=== PATIENT | female | born 1935 | race Caucasian/White ===

== ENCOUNTER 2016-07-18 11:30 | Inpatient (IN) | payer MEDICARE, BC ==
[~2016-07-18] VITALS: Ht 160 cm; Wt 59.5 kg
--- NOTE | ~2016-07-18 | DS ---
PATIENT'S NAME: UMM NICHOLSON [facility] AGE: 80 Y [address] ROOM: [address] [place], [place] [address] LOCATION: [facility] ADMIT DATE: 07/18/2016 Discharge Summary DISCHARGE DATE: 07/29/2016 FAMILY PHYSICIAN: Physician, Unknown ATTENDING PHYSICIAN: Dali Fink REASON FOR ADMISSION: The patient is a 80-year-old female who was admitted with a type 2 odontoid fracture from a fall. The patient also had Alzheimer's type dementia and pulmonary hypertension. She was also a type 2 diabetic and on long time anticoagulation for mechanical heart valve. On examination, the patient was alert, but very confused and combative at times. She moved all her extremities. TREATMENT RENDERED: The patient's fracture was treated nonoperatively with a cervical collar. Imaging studies performed showed that the fracture was stable on serial imaging. It was therefore decided to try and manage the fracture nonoperatively. The patient was transferred to [facility] on 07/29/2016. She has since been seen in the clinic and repeat imaging shows that the fracture is stable in the position where it was at the time of dismissal. I will continue to follow the patient up in the clinic to make sure that the fracture is still stable. However, if the situation changes, she may need operative intervention. FINAL DIAGNOSES: 1. Cervical spine fracture. 2. Dementia. 3. Mechanical heart valve on anticoagulation. 4. Diabetes. MD AMA MCFARLANE/jose alejandro /[id number] d: 08/13/16 0457 t: 08/23/16 0903, DISCHARGE SUMMARY
--- NOTE | ~2016-07-18 | ECHO ---
Transthoracic Echocardiography Report (TTE) Demographics Patient Name UMM NICHOLSON Date of Study 07/19/2016 Patient Number [id number] Visit Number [id number] Date of 1935 Room Number G6219 Gender Female Number Age 80 year(s) Referring Reema Santos MD Chain Tender Barbie Salmeron, Physician RT,RVT,RDCS Physician Interpreting Mina Miguel MD Is Architect Physician Supervising Ordering MD/MLP Physician Nurse Stress School Transportation Director Conclusions Contractility Score Summary At rest the following contractility abnormalities were noted: Hypokinesis of the Mid anterior, the Mid tim-septal, the Mid infero-septal, the Basal tim-septal and the Basal anterior segments. Contractility of all other segments appeared normal. Summary TDS and off axis views. Moderate ANDREY without obstruction.Low normal EF of 50%.RWMAs cannot be confidently commented on.Normal LV internal dimensions. Mild biatrial dilatation. MAC. Normally functioning metallic prosthesis in aortic position Mildly dilated RV with mild hypokinesia. Mild TR with severe pulmonary hypertension with the pulmonary pressures in the low 70s. Increased RA pressures. Procedure Type of Study TTE procedure:2D Echocardiogram, M-Mode, Doppler , Color Doppler. Procedure Date Date: 07/19/2016 Start: 07:07 AM Study Location: Inpatient Portable Technical Quality: Adequate visualization Indications:Pre surgical clearance. Additional Indications:CAD Appropriate Use Criteria: 9 Patient Status: Routine HR: 109 bpm BP: 158/74 mmHg M-Mode/2D Measurements LV Diastolic Dimension: 4.6 cm LV Systolic Dimension: 3.15 cm LV Septum Diastolic: 1.65 cm LV Septum Systolic: 1.65 cm LV PW Diastolic: 1.17 cm LV PW Systolic: 1.53 cm Cardiac Output: 6.71 l/min AO Root Dimension: 3.3 cm LA Dimension: 4.7 cm EF Estimated: 55 % LA volume: 65 ml RV Base: 4.4 cm LVOT: 2 cm RV Length: 4.5 cm LVOT VTI: 19.6 cm TAPSE: 1.2 cm LV Stroke volume: 61.54 ml Doppler Measurements AV Peak Velocity: 2.51 m/s MV Peak E-Wave: 1.69 m/s AV Peak Gradient: 25.2 mmHg AV Mean Gradient: 13 mmHg MV P1/2t: 63 msec LVOT Peak Velocity: 0.91 m/s TR Velocity:3.07 m/s PV Peak Velocity: 1.36 m/s TR Gradient:37.7 mmHg PV Peak Gradient: 7.4 mmHg Estimated RAP:10 mmHg Estimated PASP: 47.7 mmHg Estimated RVSP: 48 mmHg E' Septal Velocity: 0.09 m/s MV E/E' Ratio: 17.9 Findings Left Ventricle Moderate assymetric septal left ventricular hypertrophy.Low normal or mildly reduced EF.Normal size and WMAs cannot be confidently commented on. Right Ventricle Mildly dilated right ventricle with mild hypokinesia. Left Atrium The left atrium is mildly dilated by LA volume index measurement. Right Atrium The right atrium is mildly dilated. Dilated IVC with poor inspiratory collapse consistent with elevated RA pressure. Severe pulmonary hypertension. Systolic pulmonary artery pressure is estimated to be 60 +/- 5 mmHg. Mitral Valve Mild mitral annular calcification. Aortic Valve The prosthetic aortic valve appears to function normally with no perivalvular leak. Tricuspid Valve There is severe pulmonary hypertension. The pulmonary pressure (RVSP) is 70 mmHg. Pulmonic Valve Normal pulmonic valve structure and function. Contractility Score LV regional wall motion:(0-Non visualized 1-Normal 2-Hypokinesis 3-Akinesis 4-Dyskinesis 5-Aneurysm) Signature dtt: Myriam Enriquez dtd: 07/19/16 0707 Physician Self Edit
--- NOTE | ~2016-07-18 | ENPV ---
Vascular Lower Extremities Arterial Duplex and Lower Arterial Plethysmography Procedure Demographics Patient Name UMM NICHOLSON Date of Study 07/20/2016 Patient Number [id number] Gender Female Date of 1935 Age 80 Visit Number [id number] Height 63 Weight 148 Number Referring Bianca Santos Interpreting Wendi Mathews MD Physician PATTERNMAKER Physician Physician Ordering Bianca Santos Supervisor Clam Bed Physician SAEED Supervisor Felling Bucking Juan Luis Sanderson [facility], RVT Conclusions Summary Duplex imaging of the right leg suggests mild calcific diffuse disease throughout the right lower extremity. There is an occlusion at the distal popliteal artery that reconstitutes with collateral flow at proximal PROCESS MACHINE OPERATOR. Ankle brachial index on the right is 1.49, noncompressible calcific disease. Ankle brachial index on the left is 1.65, noncompressible calcific disease. Procedure Type of Study: Extremities Arteries:Lower Extremities Arterial Duplex, Arterial Lower Extremity Right, Lower Arterial Plethysmography, Ankle/Brachial Indicies. Indications for Study:Non Healing Wounds. Additional Indications:Necrotic wound Appropriate Use Criteria:9 Patient Status:Routine. Study Location:Inpatient Portable. Technical Quality:Limited visualization due to combative patient. - Preliminary reported to:Dr. Fink. Velocities are measured in cm/s ; Diameters are measured in cm Pressures + ++--------+-----+----+--------+-----+ ! !!Right ! !Left! ! ! + ++--------+-----+----+--------+-----+ !Location !!Pressure!Ratio! !Pressure!Ratio! + ++--------+-----+----+--------+-----+ !Ankle PT !!224 !1.49 ! !247 !1.65 ! + ++--------+-----+----+--------+-----+ !DP !!204 !1.36 ! !244 !1.63 ! + ++--------+-----+----+--------+-----+ !Great Toe !!172 !1.15 ! ! ! ! + ++--------+-----+----+--------+-----+ - Brachial Pressure:Right: 121.Left:150. - YULIANA:Right: 1.49.Left: 1.65. Plethysmographic Digit Evaluation +---------++--------+-----+ ++--------+-----+ + ! !!Right ! !Left !! ! ! ! +---------++--------+-----+ ++--------+-----+ + !Location !!Pressure!Ratio!PPG Wave Form !!Pressure!Ratio!PPG Wave Form ! +---------++--------+-----+ ++--------+-----+ + !Great Toe!!172 !1.15 ! !! ! ! ! +---------++--------+-----+ ++--------+-----+ + Velocities are measured in cm/s ; Diameters are measured in cm LE Duplex Measurements + ++-----+ +----+---+ + ! !!Right! !Left! ! ! + ++-----+ +----+---+ + !Location !!PSV !Wave Desc. ! !PSV!Wave Desc. ! + ++-----+ +----+---+ + !Femoral !!136 !Triphasic ! ! ! ! + ++-----+ +----+---+ + !PFA !!100 !Triphasic ! ! ! ! + ++-----+ +----+---+ + !Prox SFA !!119 !Triphasic ! ! ! ! + ++-----+ +----+---+ + !Mid SFA !!98 !Triphasic ! ! ! ! + ++-----+ +----+---+ + !Dist SFA !!85 !Triphasic ! ! ! ! + ++-----+ +----+---+ + !Prox Popliteal !!98 !Triphasic ! ! ! ! + ++-----+ +----+---+ + !Dist Popliteal !!50 !Monophasic ! ! ! ! + ++-----+ +----+---+ + !Prox PROCESS MACHINE OPERATOR !!68 !Multiphasic! ! ! ! + ++-----+ +----+---+ + !Mid PROCESS MACHINE OPERATOR !!41 !Monophasic ! ! ! ! + ++-----+ +----+---+ + !Dist PROCESS MACHINE OPERATOR !!42 !Monophasic ! ! ! ! + ++-----+ +----+---+ + !DP !!38 !Monophasic ! ! ! ! + ++-----+ +----+---+ + Signature dtt: Brayan Vazquez dtd: 07/20/16 0912 Physician Self Edit
--- NOTE | ~2016-07-18 | CON ---
PATIENT'S NAME: ALENA NICHOLSON [facility] AGE: 83 Y [address] ROOM: [place] [address] LOCATION: [facility] ADMIT DATE: 07/18/2016 Consultation DISCHARGE DATE: FAMILY PHYSICIAN: PHYSICIAN, UNKNOWN ATTENDING PHYSICIAN: Dali Fink DATE OF CONSULTATION: 07/19/2016 REFERRING PHYSICIAN: ESTHELA LINARES MD The patient of Dr. Fink and Dr. Benavidez. Dear Colleagues: Thank you for asking me to see Mrs. Nicholson who is an 83-year-old female patient from [facility] where she has been there for 2 years according to her daughter. Her history is from her chart as well as from her daughter, Niki in [place]. Alena has had Alzheimer's for a number of years and for the last 2 years spent in dementia unit in [place]. She had a fall of unknown variety and has cervical spine fracture and is awaiting surgery on Friday. I am asked to see her to give cardiac clearance. The patient herself is very confused and has no history to give practically. The patient apparently is in the dementia unit and sleeps during most of the day and walks around during most of the night. Nobody has ever noticed her or have been told that she has chest pain or shortness of breath. She does not seem to have orthopnea or paroxysmal nocturnal dyspnea. She has a history of atrial fibrillation. She has not had any symptoms of lightheadedness, dizziness, and syncope. Her ankles have always been swollen. She has history of hypertension, type 2 diabetes, significant family history of premature coronary artery disease, elevated cholesterol, and she quit smoking 40 years ago. She has never had an [place]. She has had 3 different stents according to her daughter. 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 In 1974, she had a valve replaced which is her mitral valve. She also has history of congestive heart failure and paroxysmal atrial fibrillation. MEDICATIONS: Her current list of medications are, 1. Tylenol p.r.n. 2. Albuterol inhaler. PATIENT'S NAME: ALENA NICHOLSON [facility] AGE: 83 Y [address] ROOM: [place] [id number] LOCATION: [facility] ADMIT DATE: 07/18/2016 Consultation DISCHARGE DATE: FAMILY PHYSICIAN: PHYSICIAN, UNKNOWN ATTENDING PHYSICIAN: Dlai Fink 3. Allopurinol 150 mg a day. 4. Vitamin B12, 1 mg b.i.d. 5. Aricept 10 mg at bedtime. 6. Lexapro 5 mg every morning. 7. Ferrous sulfate 325 mg a day. 8. Folic acid 1 mg a day. 9. Isopto teardrops. 10. Insulin glargine 36 units subcutaneously every night at bedtime. 11. DuoNeb nebulizers every 8 hours. 12. Ativan t.i.d. 13. Milk of magnesia. 14. Namenda 14 mg every morning. 15. Toprol-XL 100 mg every morning in addition for heart rate more than 110 and 50 mg at bedtime. 16. Multivitamin once a day. 17. Saxagliptin 5 mg every morning. 18. Senna. 19. Simvastatin 20 mg at bedtime. 20. Coumadin. ALLERGIES: PENICILLIN, KEFLEX, AND VALIUM. PAST MEDICAL HISTORY: 1. History of CVA as mentioned earlier. 2. 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 3. Anxiety disorder. 4. Major depressive disorder. 5. History of gout. 6. Dementia. 7. Constipation. 8. Hypokalemia. 9. Vitamin B12 deficiency. SOCIAL HISTORY: The patient lives at the dementia unit. There is no abuse of tobacco or alcohol at this time. Her appetite and weight have been stable. FAMILY HISTORY: Mother had [place] at 65. PHYSICAL EXAMINATION: GENERAL: The patient does not appear to be in any acute distress. VITAL SIGNS: Blood pressure is 150/80, heart rate is in the 90s and PATIENT'S NAME: ALENA NICHOLSON [facility] AGE: 83 Y [address] ROOM: [address] [place] [id number] LOCATION: [facility] ADMIT DATE: 07/18/2016 Consultation DISCHARGE DATE: FAMILY PHYSICIAN: PHYSICIAN, UNKNOWN ATTENDING PHYSICIAN: Dali Fink irregular, respiration is 18, afebrile. She is not on oxygen. HEENT: Normal. NECK: Supple. I cannot examine the neck, otherwise because she has a neck brace on. HEART: First and second heart sounds are irregular. The first sound is variable in intensity and appears to be fairly crisp. CHEST: Appears to be clear. ABDOMEN: Soft. EXTREMITIES: Reveal no edema at this time. ASSESSMENT: 1. Severe dementia. 2. History of coronary artery disease status post percutaneous coronary interventions in the past and has had 3 stents apparently. 3. No history of myocardial infarction in the past. 4. Her EKG reveals atrial fibrillation as well as regular sinus in 2 different EKGs, which is otherwise unremarkable. 5. History of subacute bacterial endocarditis and valve replacement with what sounds like a metallic prosthesis. 6. Paroxysmal atrial fibrillation. 7. Systolic and diastolic congestive heart failure from the records. RECOMMENDATION: 1. In preparation for surgery, we will hold off the Coumadin and check the INR daily. When the INR drops less than 2.5, we will get her started on some heparin, which can be turned off about 4 hours prior to her internal surgery a little earlier. 2. Get an echo. 3. Get records from [place] as well as from the [place]. 4. Do a Lexiscan Cardiolite study at the earliest. The above plan was discussed with the patient's daughter, Niki and she does not seem to have any concerns about that plan. Again, I appreciate this opportunity to participate in the care of Mrs. Nicholson. MD HELEN MAYERS/jose alejandro /[id number] d: 07/19/16 1102 t: 07/30/16 1233, CONSULTATION REPORT
--- NOTE | ~2016-07-18 | ESTC ---
Cardiac Perfusion Imaging Demographics Patient Name LYN SALOMON Gender Female Patient Number [id number] Race Visit Number [id number] Ethnicity Corporate ID Room Number G6219 Accession Number [id number] Height 63 inches Date of 1935 Weight 148 pounds Interpreting Mina Miguel Date of study 07/22/2016 Physician Supervising /DEYVI ALANIZ Technologist Arleen Barrett MD Ordering Physician Mina Miguel Stress Juan Luis Sanderson MD trace evidence technician RDCS, RVT Stress ECG Reading Mina Miguel Nurse Elvira Armijo RN Physician MD Agatha Blair RN Procedure Procedure Type: Nuclear Stress Test:Pharmacological, Lexiscan, Cardiolite Stress Test Procedure Start time: 07/22/2016 09:56 Indications: CHF, Atrial fibrillation and History of CAD. Risk Factors The patient risk factors include:hypercholesterolemia, hypertension, dyslipidemia and prior heart failure . Conclusions Summary No TID. Small distal anteroseptal moderate fixed defect most consistent with soft tissue attenuation. Medium inferolateral moderate fixed defect most consistent with soft tissue attenuation Low normal EF and WM. No EKG changes of ischemia. Stress Protocols Resting ECG RSR. Pre-stress physical exam: Un changed. Peak HR:88 bpm HR/BP product:[id number] Peak BP:156/69 mmHg Predicted HR: 142 bpm % of predicted HR: 62 ECG Findings No ECG changes suggestive of ischemia. Arrhythmias No rhythm abnormality. Symptoms None. Stress Interpretation Asymptomatic with Lexiscan. Normal hemodynamic response. No ischemia. No arrythmia. Imaging Results Applied corrections - Motion correction applied High risk findings Summed scores - Summed stress score: 12 - Summed rest score: 13 - Summed difference score: -1 Stress ejection Ejection fraction:54 % EDV :105 ml ESV :48 ml Stroke volume :57 ml LV mass :122 gr LV size:Normal Normal LV function Imaging Protocols Rest Stress Isotope:Tc99m Sestamibi IV Isotope: Tc99m Sestamibi IV Isotope dose:11.3 mCi Isotope dose:33.9 mCi Date:07/22/2016 07:53 Date:07/22/2016 10:34 Technique: SPECT Technique: Gated Supine SPECT Supine Procedure Medications - Regadenoson (Lexiscan) 0.4 mg IV over 10-15 sec. I.V. 0.4 mg. Medical History Admission Data Admission date: 07/18/2016 Admission Time: 13:12 Hospital Status: Inpatient. Signatures dtt: Myriam Enriquez dtd: 07/22/16 0956 Physician Self Edit
--- NOTE | ~2016-07-18 | HP ---
PATIENT'S NAME: LYN [facility] AGE: 83 Y [address] ROOM: [place] [address] LOCATION: [facility] ADMIT DATE: 07/18/2016 History & Physical DISCHARGE DATE: FAMILY PHYSICIAN: PHYSICIAN, UNKNOWN ATTENDING PHYSICIAN: Dali Fink DATE OF SERVICE: 07/18/2016 The patient referred by Dr. Jameson. REASON FOR REFERRAL: Cervical spine fracture. PATIENT IDENTIFICATION: Alena Humphrey is an 83-year-old female. PRESENTING COMPLAINT: Fall. HISTORY OF PRESENT ILLNESS: The patient was unable to provide a full history and some of the history here is what was obtained from the records. The patient has had a number of falls and this morning she fell again landing on her face. This time, she complained of neck pain. The patient was taken to the hospital in [place] and a CT scan of her cervical spine revealed a cervical spine fracture. The patient was therefore referred to [place] for evaluation and treatment. PAST MEDICAL HISTORY: The patient has a history of dementia. She has also had atrial fibrillation and an artificial heart valve. The patient is diabetic. The patient also has a pacemaker. CURRENT MEDICATIONS: Several, please see chart. ALLERGIES: PLEASE SEE CHART. REVIEW OF SYSTEMS: Unable to obtain a full review of systems as the patient is not fully verbalizing. PHYSICAL EXAMINATION: GENERAL: The patient is an elderly female who was alert and cooperative PATIENT'S NAME: LYN [facility] AGE: 83 Y [address] ROOM: [place] [address] LOCATION: [facility] ADMIT DATE: 07/18/2016 History & Physical DISCHARGE DATE: FAMILY PHYSICIAN: PHYSICIAN, UNKNOWN ATTENDING PHYSICIAN: Dali Fink during the examination. VITAL SIGNS: Stable. NEUROLOGICAL: The patient is able to communicate, but she is not saying very much. Cranial Nerves: No cranial nerve deficits seen. Motor Examination: The patient is able to move all extremities with a reasonable amount of strength. She was able to get up to the commode with some help. HEENT: Head: The patient has bruises to her forehead area consistent with a history of falls that she has had. Eyes and Ears: No evidence of trauma. SKIN: No skin rashes, skin masses or bruises. EXTREMITIES: No cyanosis or clubbing. CARDIOVASCULAR: Heart sounds present. RESPIRATORY: The patient is not short of breath at bedside. REVIEW OF IMAGING STUDIES: The patient has had a cervical spine CT done. The CT scan shows a type 2 odontoid fracture with about 4 mm anterior subluxation. IMPRESSION: This is an 83-year-old female with type 2 odontoid fracture following a fall this morning. The patient also has dementia, diabetes, and atrial fibrillation. She is on Coumadin. PLAN: We will hold the patient's Coumadin for now as there is a chance that she may need surgery. The Hospitalist Service will be involved in the care of the patient to help with the medical issues. I presented treatment options to the patient's daughter including cervical collar versus operative fixation. The patient's daughter points out that the patient is not completely with it and has dementia and tends to pull things off including a cervical collar. It would therefore seem that surgery is more appropriate for the patient. The surgery would be type, anterior odontoid screw fixation. I will go over the benefits, risks, and alternatives of the procedure with the family. The patient is being admitted at this time. We will check and correct her INR if it needs to be corrected in anticipation of surgery. MD AMA MCFARLANE/asadl /[id number] D: 258 T: [id number] HISTORY & PHYSICAL
--- NOTE | ~2016-07-18 | CON ---
PATIENT'S NAME: [facility] AGE: 80 Y [address] ROOM: [place] [id number] LOCATION: [facility] ADMIT DATE: 07/18/2016 Consultation DISCHARGE DATE: FAMILY PHYSICIAN: PHYSICIAN, UNKNOWN ATTENDING PHYSICIAN: Dali Fink DATE OF CONSULTATION: 07/19/2016 REFERRING PHYSICIAN: Sarath Holt APRN. REASON FOR VISIT: Wound Care visit to evaluate and treat a right lower extremity ulcer. HISTORY OF PRESENT ILLNESS: This is a 80-year-old female patient who was admitted to [facility] after a fall. She is currently living at [facility]. She has a significant history of Alzheimer disease, essential hypertension, type 2 diabetes mellitus, CVA, anxiety, depression, gout, anemia, CAD, atrial fibrillation, and systolic and diastolic congestive heart failure. After her fall, she developed a C2 fracture. She presented to the hospital with a right lower extremity Unna boot. Unna boot was removed last night. TheraBond and Coban were applied to the site. The patient is demented and unable to provide a history. No previous records indicate how long she has had an Unna boot on. The patient is kicking during the interview and uncooperative. Unable to complete a review of system. No family at bedside. PAST MEDICAL HISTORY: Obtained from previous records: 1. Type 2 diabetes mellitus. 2. Anemia, secondary to vitamin B12 deficiency. 3. Hyperlipidemia. 4. Hypokalemia. 5. Constipation. 6. Dementia with behavioral disturbances. 7. Gout. 8. Major depressive disorder. 9. Anxiety. 10. History of rheumatic multiple valve disease. 11. Coronary artery disease. 12. Essential hypertension. 13. Paroxysmal atrial fibrillation. 14. Systolic and diastolic congestive heart failure. 15. CVA. PATIENT'S NAME: [facility] AGE: 80 Y [address] ROOM: [place] [address] LOCATION: [facility] ADMIT DATE: 07/18/2016 Consultation DISCHARGE DATE: FAMILY PHYSICIAN: PHYSICIAN, UNKNOWN ATTENDING PHYSICIAN: Dali Fink PAST SURGICAL HISTORY: Obtained from previous records: 1. Cholecystectomy. 2. Valve replacement. 3. Foot surgery. 4. Right rotator cuff. 5. Bilateral cataracts. FAMILY HISTORY: None listed on the chart. The patient unable to provide history. SOCIAL HISTORY: The patient lives in [place] on the dementia unit. She quit smoking in 1974 per previous records. ALLERGIES: CEPHALEXIN, DILTIAZEM, AND PENICILLIN. CURRENT MEDICATIONS: Please refer to the medication administration record. REVIEW OF SYSTEMS: Unable to complete due to the patient's cognitive status. PHYSICAL EXAMINATION: VITAL SIGNS: Temperature 96.5, pulse 97, respirations 18, blood pressure 158/74, pulse oximetry 93% on 3 L. Height 5 feet 3 inches and weight 67.5 kg. The patient was initially sleeping in bed. Appears as an elderly female. Does not arouse until touching her right lower extremity wound. Then she was kicking and withdrawing. HEENT: Unable to completely assess. Cervical collar in place. Would not open her mouth. CARDIOVASCULAR: Regular rate and rhythm noted on the monitor. ABDOMEN: Flat. EXTREMITIES: Doppled right pedal pulses. Posterior tibial pulse thready. Capillary refill intact. Extremity is warm to touch. No hair growth noted. The entire right lower extremity has bulging varicosities and telangiectasia. SKIN: Right anterior lower ulcer measures 4.0 cm width x 4.0 cm length x 0.5 cm depth. Wound bed has necrotic tissue about 65% yellow adherent slough, about 30% soft brown necrosis, and about 5% red granulation tissue. Periwound is erythemic. Moderate serous exudate noted. Linear brown scab intact to the proximal wound. Right posterior calf has two linear brown intact scabs, unable to measure as the patient is kicking and uncooperative. Buttocks intact. Elbows intact. PATIENT'S NAME: [facility]MM [facility]ICH[facility] AGE: 80 Y [address] ROOM: [place] [address] LOCATION: [facility] ADMIT DATE: 07/18/2016 Consultation DISCHARGE DATE: FAMILY PHYSICIAN: PHYSICIAN, UNKNOWN ATTENDING PHYSICIAN: Dali Fink LABORATORY DATA: Hemoglobin A1c 5.8%. White blood cell count 8.5, hemoglobin 9.2, hematocrit 29.7, platelets 174. Lactate 1.2. Sodium 140, potassium 4.6, chloride 106, bicarb 27, BUN 15, creatinine 0.9, glucose 116, and albumin 2.6. ASSESSMENT AND PLAN: Again, this is a 80-year-old female patient who was admitted to [facility] after a fall. She suffers from a C2 fracture. She is trying to get cleared for surgery. Wound Care consult to evaluate and assess a right lower extremity ulcer. 1. Right lower extremity ulcer. The patient has classic venous signs, including telangiectasia and bulging varicosities. Surprisingly, no lower leg edema. Right pedal pulses are thready. This ulcer appears to be a mixed venous and arterial ulcer. There is also necrosis to the wound bed. I discussed the case with Dr. Kline. Before re-applying Unna boot, it would be best to check arterial status. I ordered a right leg YULIANA and arterial duplex. The patient was unable to tolerate and cooperate with conservative sharp debridement. We will mechanically debride with wet-to-dry dressing changes t.i.d. Nursing can wrap with Kerlix. After YULIANA and arterial duplex results, I will make further dressing recommendations. I understand the priority for the patient at this point is clearance for surgery. 2. Type 2 diabetes mellitus. The patient is on Accu-Cheks and sliding scale insulin and Levemir. She may also suffer from calcified lower leg disease. 3. History of coronary artery disease and chronic diastolic CHF. Cardio on board. I would like to thank Sarath Holt APRN for this consultation. RIAN DANIELS APRN FOR MD MEHRDAD WATTS/jose alejandro /[id number] d: 07/19/16 2144 t: 08/05/16 1508, CONSULTATION REPORT
--- NOTE | ~2016-07-18 | CON ---
PATIENT'S NAME: UMM NICHOLSON [facility] AGE: 83 Y [address] ROOM: [id number] [place], [place] [address] LOCATION: [facility] ADMIT DATE: 07/18/2016 Consultation DISCHARGE DATE: FAMILY PHYSICIAN: PHYSICIAN, UNKNOWN ATTENDING PHYSICIAN: Dali Fink REFERRING PHYSICIAN: ESTHELA LINARES MD CHIEF COMPLAINT: Neck pain. REASON FOR CONSULTATION: Preoperative medical clearance and also medical management. HISTORY OF PRESENT ILLNESS: This is an 83-year-old female with advanced dementia, living in the Dementia Unit, and the story is obtained from the ER physician who took care of the patient today at the [facility]. I personally called the physician over there to get a history from the physician given that the patient has advanced dementia and does not give any reliable history. The story is that she lives in dementia unit, and today in the morning around 9 to 10 a.m. in the morning, the patient was found by the staff to be lying on the floor conscious but complaining of neck pain. Again the patient could not give me any history about what happened, and therefore, they suspect she must have had a fall and somehow injured her neck and is not quite sure how long she was on the floor before she was found. There was no urinary incontinence or fecal incontinence or any vomiting around her when she was found on the ground. No further history could be obtained. The patient was seen in the [facility] where they did not perform any blood work and only thing they did was a CT of the cervical spine without contrast on 07/18/2016 and it showed significant motion blurring, limits assessment, but there is a comminuted fracture at the base of the dens with 4 to 5 mm of anterior subluxation of the dens with respect to the base of C2. No other discrete fracture or dislocation, but fracture could be missed especially in the upper cervical spine due to motion blurring. Consider repeat imaging for better detailed evaluation. Mild aneurysmal dilatation of the ascending aorta, not completely imaged, and 4.[address] of the brain was performed. The patient does take Coumadin at home for history of paroxysmal atrial fibrillation, last dose was last night. Because of the C2 fracture, the patient was sent over here for higher level of care. REVIEW OF SYSTEMS: As mentioned in the history of present illness. All other systems reviewed and negative except those mentioned in history of present illness. PAST MEDICAL HISTORY: From the medical record that is brought with the patient here from [place], she PATIENT'S NAME: UMM NICHOLSON [facility] AGE: 83 Y [address] ROOM: [id number] [place], [place] [address] LOCATION: [facility] ADMIT DATE: 07/18/2016 Consultation DISCHARGE DATE: FAMILY PHYSICIAN: PHYSICIAN, UNKNOWN ATTENDING PHYSICIAN: Dali Fink has a history of, 1. Type II diabetes. 2. Anemia due to vitamin B12 deficiency according to the chart. 3. Hyperlipidemia. 4. Hypokalemia. 5. Constipation. 6. Dementia with behavior disturbance. 7. History of gout. 8. Major depressive disorder. 9. Anxiety disorder. 10. History of rheumatic multiple valve disease. 11. Hypertension. 12. Coronary artery disease. 13. Paroxysmal atrial fibrillation. 14. History of chronic combined systolic and diastolic heart failure. 15. History of cerebrovascular accidents in the past. ALLERGIES: PENICILLIN, KEFLEX, AND VALIUM; UNKNOWN REACTION. HOME MEDICATIONS: 1. Tylenol 650 mg p.o. t.i.d. 2. Tylenol 650 mg p.o. every 4 hours p.r.n. for pain or fever. 3. Albuterol 1 inhalation every 8 hours p.r.n. for shortness of breath or wheezing. 4. Allopurinol 150 mg p.o. daily. 5. Vitamin B12, 1000 mcg p.o. b.i.d. 6. Aricept 10 mg p.o. every night at bedtime. 7. Lexapro 5 mg p.o. every morning. 8. Ferrous sulfate 325 mg p.o. daily. 9. Folic acid 1 mg p.o. daily. 10. Isopto Tears drop 2 drops each eye twice daily. 11. Insulin glargine 36 units subcutaneously every night at bedtime. 12. DuoNeb 1 nebulization every 8 hours p.r.n. for shortness of breath or wheezing. 13. Ativan 0.5 mg p.o. t.i.d. 14. Milk of magnesia 30 mL p.o. every 24 hours p.r.n. for constipation. 15. Namenda Extended Release capsule 14 mg p.o. every morning. 16. Toprol-XL 100 mg p.o. every morning. 17. Toprol-XL 50 mg p.o. every morning p.r.n. for heart rate more than 110. 18. Toprol-XL 50 mg p.o. at bedtime. 19. Multivitamin 1 tablet p.o. daily. 20. Saxagliptin 5 mg p.o. every morning. 21. Senna 8.6 mg p.o. every morning. 22. Simvastatin 20 mg p.o. every night at bedtime. PATIENT'S NAME: UMM NICHOLSON [facility] AGE: 83 Y [address] ROOM: [place] [address] LOCATION: [facility] ADMIT DATE: 07/18/2016 Consultation DISCHARGE DATE: FAMILY PHYSICIAN: PHYSICIAN, UNKNOWN ATTENDING PHYSICIAN: Dali Fink 23. Coumadin 3 mg p.o. every evening, last dose was taken on 07/17/2016. SOCIAL HISTORY: Cannot be obtained from the patient due to advanced dementia, also not included with the patient's medical record. FAMILY HISTORY: Cannot be obtained from the patient due to advanced dementia, not included in the patient's medical records either. PAST SURGICAL HISTORY: Cannot be obtained from the patient and also not included in the patient's medical records either. Cannot be obtained from the patient due to advanced dementia. PHYSICAL EXAMINATION: VITAL SIGNS: At the time of my dictation; temperature 97.2, heart rate 87, respirations 16, blood pressure 145/88, saturation 95% on 2 L nasal cannula. Pain cannot be assessed due to dementia. GENERAL APPEARANCE: The patient is an elderly female, in no acute distress. She is alert but disoriented x3 due to advanced dementia and this is her baseline. HEENT: Her pupils are 3 mm bilaterally, equally round and reactive to light. Extraocular muscles cannot be assessed given that the patient does not follow commands due to dementia. Anicteric sclerae. Nasal turbinates are normal bilaterally. Atraumatic and normocephalic. Moist oral mucosa. No oral thrush. NECK: She has a cervical collar in place. CARDIOVASCULAR: Regular rate and rhythm. No murmur, no rubs, no gallops. Normal S1, S2. RESPIRATORY: Poor inspiratory efforts but clear to auscultation. ABDOMEN: Soft, nontender, nondistended, normal bowel sounds, no hepatosplenomegaly, and bowel sounds are present. No abdominal rigidity and no rebound tenderness. No palpable mass. EXTREMITIES: No edema in upper or lower extremity. In the right lower extremity distal anterior fisher, she has a pressure ulcer stage IV with granulation tissues. Does not look that infected. I do not see any purulent discharge but she has a stage IV pressure ulcer on my examination. Mild surrounding erythema around the ulcer. Cannot assess tenderness given the patient does not follow commands and does not make any noise when I touched the surrounding skin of the ulcer. Dorsalis pedis pulses present +2 bilaterally. SKIN: As mentioned, in the extremity she has a stage IV pressure ulcer in the right lower extremity. NEUROLOGIC: Cannot be assessed fully given that the patient has dementia and PATIENT'S NAME: [facility]MM [facility] AGE: 83 Y [address] ROOM: [place] [address] LOCATION: [facility] ADMIT DATE: 07/18/2016 Consultation DISCHARGE DATE: FAMILY PHYSICIAN: PHYSICIAN, UNKNOWN ATTENDING PHYSICIAN: Dali Fink does not follow commands. No facial droop. MUSCULOSKELETAL: Cannot assess a full muscle strength given that the patient does not follow commands due to dementia. LABORATORY DATA: In [facility] no blood work was drawn. Currently, I ordered some blood work right now, but they are pending. IMAGES: The only imaging test they did over there in [facility] was the cervical spine without contrast. Refer to the history of present illness for details. ASSESSMENT AND PLAN: 1. Regarding her C2 fracture, status post unwitnessed fall: Per Neurosurgery planning for surgery sometime next week. Pain control and deep venous thrombosis prophylaxis per Neurosurgery. 2. Regarding her preoperative medical clearance: Currently is not medically cleared given that I need to do some blood work and get EKG and chest x- ray as part of the preop clearance and I will get a transthoracic echo in the morning given that she has reported history of valvulopathy and also coronary artery disease and paroxysmal atrial fibrillation, and the patient has dementia and cannot give any history, I have very little information to work with; therefore, as part of the patient's safety and preoperative medical clearance, she is not medically cleared now until we have all the blood work and the imaging test as I mentioned before performed. Currently, all the labs ordered are pending, and therefore, she is not medically cleared as I mentioned before. Continue telemetry monitoring. 3. Regarding her advanced dementia with behavior disturbance: It is very common for the patient to have delirium in the middle of the night in patient with advanced dementia; therefore, I am going to put her on the delirium protocol with Seroquel and haloperidol p.r.n. depending on her delirium severity. Continue her dementia medication with memantine and donepezil. 4. Regarding her type II diabetes: I will check fingerstick glucose right now and also A1c, and depending on the fingerstick glucose level, I will decide about the regimen, but for sure I am going to put her on the sliding scale low-dose aspart a.c. and h.s. and also 1 unit per 15 g of carb count with insulin aspart as well with each meal, and I will cut down her home Levemir by half given that she is in the hospital, people usually eat less and can always titrate as necessary. Therefore, she takes 36 units of subcu Levemir every night, half of that will be 18 units, unless her fingerstick glucose is very high or very low then we can titrate. I will continue her other two diabetic medication which are alogliptin. I do not think she has type 1 diabetes because she is on PATIENT'S NAME: UMM NICH[facility] AGE: 83 Y [address] ROOM: [place] [address] LOCATION: [facility] ADMIT DATE: 07/18/2016 Consultation DISCHARGE DATE: FAMILY PHYSICIAN: PHYSICIAN, UNKNOWN ATTENDING PHYSICIAN: Dali Fink oral antidiabetic medication. There is no way the patient has type 1 diabetes is taking oral antidiabetic medication, this does not make sense. I think this is an error from the medical records from outside provider and facility. She must have a type 2 diabetes. 5. History of coronary artery disease and valvulopathy and combined chronic systolic and diastolic heart failure as mentioned in the medical records: Again the patient is demented and I cannot get any history from the patient. We will be getting the EKG right now and echo in the morning and also check a proBNP and cardiac enzyme and then will go from there. 6. Regarding her history of anemia from vitamin B12 deficiency: We will be checking the CBC right now to look for any anemic finding. 7. Regarding her anxiety disorder: Continue Ativan 0.5 mg p.o. t.i.d. 8. Regarding her depression: Continue her Lexapro 5 mg p.o. every morning. 9. Regarding her history of paroxysmal atrial fibrillation and hypertension. Continue the Toprol-XL with holding parameters. 10. Regarding her paroxysmal atrial fibrillation, on Coumadin: INR will be checked right now and Coumadin will be on hold for now given that we do not even know what is her INR level. Because she had an unwitnessed fall and the CT head was not performed from the outside facility in the setting of using Coumadin, I will be checking a CT of the head right now to rule out any intracranial hemorrhage. 11. Regarding her hyperlipidemia: Continue the statin, she takes simvastatin 20 mg p.o. every night. 12. Deep venous thrombosis prophylaxis: Per Neurosurgery. 13. Regarding her right lower extremity stage IV pressure ulcer: Consult Wound Care. Does not look infected to me at the moment. I will be checking a lactic acid and procalcitonin to make sure she is not septic. 14. Further plan depends on clinical course. Time spent on the day of consultation 45 minutes including calling the outside facility physician in [place] to get the history, examining and interviewing the patient, addressing all the questions and concerns that the patient and the nurses had, and going over the plan of care with the patient and the nurses. DANNA MCKOY MD CC/modl /[id number] d: 07/18/162326 t: 08/07/16 1106, CONSULTATION REPORT
[2016-07-18] MEDS ORDERED: TYLENOL325 MG PO ×2 (13:55→13:56)
[2016-07-18] MEDS ORDERED: ALBUTEROL2.5 MG/31 INH (13:57)
[2016-07-18] MEDS ORDERED: ZYLOPRIM300 MG PO (13:58)
[2016-07-18] MEDS ORDERED: ARICEPT5 MG PO (13:59)
[2016-07-18] MEDS ORDERED: COUMADIN ** IA3 MG PO (14:02)
[2016-07-18] MEDS ORDERED: ATIVAN 0.5MG0.5 MG PO (14:02)
[2016-07-18] MEDS ORDERED: DUONEB INH (14:05)
[2016-07-18] MEDS ORDERED: FOLIC ACID1 MG PO (14:05)
[2016-07-18] MEDS ORDERED: FEOSOL325 MG PO (14:05)
[2016-07-18] MEDS ORDERED: LANTUS (IN100 UNIT/M SUB-Q (14:09)
[2016-07-18] MEDS ORDERED: ISOPTO TEARS15 ML OPHTH (14:09)
[2016-07-18] MEDS ORDERED: LEXAPRO5 MG PO (14:10)
[2016-07-18] MEDS ORDERED: TOPROL XL100 MG PO (14:11)
[2016-07-18] MEDS ORDERED: TOPROL XL 5050 MG PO ×2 (14:12→14:25)
[2016-07-18] MEDS ORDERED: MILK OF MA400 MG/5 M PO (14:16)
[2016-07-18] MEDS ORDERED: THERAGRAN-M1 TAB PO (14:17)
[2016-07-18] MEDS ORDERED: NAMENDA XR14 MG PO (14:18)
[2016-07-18] MEDS ORDERED: ONGLYZA5 MG PO (14:18)
[2016-07-18] MEDS ORDERED: SANTYL30 GM TOP (14:20)
[2016-07-18] MEDS ORDERED: SENNA8.6 MG PO (14:21)
[2016-07-18] MEDS ORDERED: ZOCOR20 MG PO (14:21)
[2016-07-18] MEDS ORDERED: VITAMIN B-12500 MCG PO (14:22)
--- NOTE | 2016-07-18 14:51 | NUR ---
Pt is 83 y/o female admit for C2 fx post fall for . Pt is oriented to person. Up to bedside commode with 2 assist. Allergy to Pcn,keflex,and valium. Resides at [facility]. hx CVA,frequent falls,htn,afib,CHF,hyperlipids, valve replaced,depression,dementia,anxiety,constipation,b12 deficiency. Pt fell today and pt has fallen before but today she was unable to get up by herself and she c/o neck hurting. pt on high/low bed with padding on each side. bed alarm on. pt unable to use call light appropriately. Daughter at bedside.
--- NOTE | 2016-07-18 18:32 | NUR ---
ULTRA HIGH FALL RISK Significant Event: A/O X1, confused is baseline hx severe dementia. does not answer questions at times, difficulty following directions, 2 assist, gait belt, moves all extremities, vista collar on at all times, saline lock L)FA, voids per BSC. Hi/Lo bed for safety, family @ bedside. albertina boot to RLE, ADDY hose to LLE, multiple ecchymotic areas, face ecchymotic, rash to L)groin. Follow up: accuchecks. monitor
[2016-07-18 22:46] LABS: BASOPHIL % 0.4 %; EOSINOPHIL # 0.1 K/uL (0.0-0.5); EOSINOPHIL % 0.6 %; HEMATOCRIT 29.7 % (30.0-46.0); HEMOGLOBIN 9.2 g/dL (10.0-15.0); IMMATURE GRANULOCYTE # 0.1 K/uL (0.0-0.3); IMMATURE GRANULOCYTE % 0.7 %; LYMPHOCYTE # 1.2 K/uL (0.8-4.0); LYMPHOCYTE % 13.7 %; MCH 28.5 pg (27.0-34.0); MONOCYTE # 0.4 K/uL (0.0-1.0); MONOCYTE % 5.2 %; MPV 9.5 fl (9.4-12.4); NEUTROPHIL # (ANC) 6.7 K/uL (1.8-7.8); NEUTROPHIL % 79.4 %; NRBC % 0 /100WBC (0-0.00); PLATELET COUNT 174 K/uL (150-450); RBC 3.23 M/uL (3.00-5.00); RDW-CV 16.4 % (11.9-14.6); WBC 8.5 K/uL (4.0-11.0)
[2016-07-18 22:57] LABS: INR - (THERAPEUTIC) 1.6 (0.9-1.1); PROTIME 17.2 SECONDS (9.6-11.1); PTT 41 SECONDS (25-32)
[2016-07-18 23:08] LABS: ALBUMIN 2.6 gm/dL (3.5-5.0); ANION GAP 11.6 (10.0-19.0); CALCIUM 8.5 mg/dL (8.5-10.5); CREATININE 0.9 mg/dL (0.5-1.1); MAGNESIUM 1.9 mg/dL (1.3-2.6); PHOSPHORUS 3.7 mg/dL (2.5-4.9); POTASSIUM 4.6 mMol/L (3.7-5.1); TOTAL BILIRUBIN 0.7 mg/dL (0.0-1.5)
[2016-07-19 00:31] LABS: BILIRUBIN URINE NEGATIVE (NEGATIVE); BLOOD URINE NEGATIVE /UL (NEGATIVE); GLUCOSE URINE NEGATIVE (NEGATIVE); KETONE URINE 5 mg/dL (NEGATIVE); LEUKOCYTES URINE NEGATIVE /UL (NEGATIVE); NITRITE URINE NEGATIVE (NEGATIVE); PROTEIN URINE 30 mg/dL (NEGATIVE); SPEC GRAVITY URINE 1.015 (1.003-1.035); UROBILINOGEN URINE NORMAL (NORMAL)
[2016-07-19 00:32] LABS: COLOR URINE YELLOW (YELLOW); TURBIDITY URINE CLEAR (CLEAR)
[2016-07-19 00:43] LABS: BACTERIA URINE RARE (NEGATIVE); RBC URINE NEGATIVE #/HPF (NEGATIVE); WBC URINE NEGATIVE #/HPF (NEGATIVE)
--- NOTE | 2016-07-19 01:56 | NUR ---
Significant Event: The Patient is Alert and Oriented x1, Baseline severe Dementia. Moves all extremities spontaneously and at times to command. Very agitated at times and tries to hit, kick, pinch, and spit. [place] collar on at all times. Up with 2A, gaitbelt pivot to the commode. High Low bed and alarms for safety. Pacemaker. On 2L oxygen per NC. VSS, hypertensive at times. Uncooperative with most of the assessments. Refused to take all of her pills, MD aware. PIV to the Left forearm saline locked. ADA diet. Accu checks ACHS. Large stage 3 pressure ulcer to her Right Riley covered by a dressing- WOC nurse consulted. Bruising to arms and face. Edema to bilateral legs. No s/s of pain. Follow up: ECHO today
--- NOTE | 2016-07-19 12:30 | NUR ---
In reviewing chart patient lives at [facility] in [place]. Called and spoke with Jduy at [facility] and updated her. They are planning on patient returning to them when she is ready for discharge. Will follow.
--- NOTE | 2016-07-19 15:29 | NUR ---
Significant Event: Patient alert to name at times. Does not follow commands. Moves everything spontaneously. Denies N/T. VSS. Pacemaker. 2L NC with sats in the mif 90s. LS clear and diminished. Incontinent of urine and stool. Refused meals. Pills crushed in applesauce. Numerous skin issues. See charting. PIV to R) anterior forearm. Infusing heparin at 800 units/hr at this time. 2 assist with gaitbelt. Accuchecks ACHS with SSI. No coverage needed this shift. Denies pain. Cooperative with cares. Follow up: PTT-HP at 1900
--- NOTE | 2016-07-20 04:31 | NUR ---
Significant Event: Patient is alert to self at times. Cooperative with cares at times. Does not really follow commands. Moves everything spontaneously. Can understand certain words of patients without complications other words more mumbled. Pt does not always make much since. When pt up to bedside lynnette takes alot of queing to get pt to understand what she is to do. Was able to get patient to take most of her 2100 meds early. Scheduled Ativan given pt drowsy slept off and on most of the night. On tele has pacemaker. On 2L of O2 lungs slightly coarse at times. Pt NPO currently ADA michanical soft diet when able to eat. [place] collar to be on at all times. Venous ulcer to R) leg wet to dry drsg changes TID. Pt to have YULIANA and arterial duples done to R) leg. IV to R) forearm funning Heparin at 800 units an hour. Follow up: Accuchecks AC&HS and carb count. NPO since 0000 for Dariela today. Waiting to be cleared for surgery.
[2016-07-20 04:51] LABS: BASOPHIL % 0.3 %; EOSINOPHIL # 0.1 K/uL (0.0-0.5); EOSINOPHIL % 1.2 %; HEMATOCRIT 30.2 % (33.0-46.0); HEMOGLOBIN 9.2 g/dL (10.0-15.0); IMMATURE GRANULOCYTE # 0.1 K/uL (0.0-0.3); IMMATURE GRANULOCYTE % 0.8 %; LYMPHOCYTE # 1.2 K/uL (0.8-4.0); LYMPHOCYTE % 12.6 %; MCH 28.3 pg (27.0-34.0); MCHC 30.5 gm/dL (32.0-36.5); MCV 92.9 fl (83.0-98.0); MONOCYTE # 0.5 K/uL (0.0-1.0); MONOCYTE % 5.2 %; MPV 9.7 fl (9.4-12.4); NEUTROPHIL # (ANC) 7.5 K/uL (1.8-7.8); NEUTROPHIL % 79.9 %; NRBC % 0 /100WBC (0-0.00); PLATELET COUNT 179 K/uL (150-450); RBC 3.25 M/uL (3.50-5.50); RDW-CV 16.8 % (11.9-14.6); WBC 9.4 K/uL (4.0-11.0)
[2016-07-20 05:03] LABS: ANION GAP 13.2 (10.0-19.0); BLOOD UREA NITROGEN 14 mg/dL (6-24); CALCIUM 8.3 mg/dL (8.5-10.5); CHLORIDE 103 mMol/L (96-110); CO2 25 mMol/L (22-32); CREATININE 0.9 mg/dL (0.5-1.1); ESTIMATED GFR (MDRD EQUATION) > 60; POTASSIUM 4.2 mMol/L (3.7-5.1); SODIUM 137 mMol/L (135-145)
--- NOTE | 2016-07-20 18:58 | NUR ---
ULTRA HIGH FALL RISK Significant Event: A/O X1, 2 assist/gait belt, needs multiple cueing to follow directions, cooperative at times, only takes bites of banana and applesauce, refuses other PO intake, incontinent at times, up to BSC, family @ bedside today, vista collar on at all times, RLE wet to dry drsg change TID, L)rash groin, Heparin 800 units/hr. R)FA o2 2l/nc. lexiscan cancelled today due to pt. unable to follow commands. Follow up: next PTTHP with a.m. labs, accuchecks, hi/low bed for safety, bed alarm on
--- NOTE | 2016-07-21 04:23 | NUR ---
Significant Event: Alert to self. Does not follow commands well. Moves everthing spontaneously. Pt slept throughout the night. Drowsy ativan held during the night. Up 2 assist GB. On tele paced rythm. Heparin gtt d/c during the night due to the results of the CT scan. On 2L of O2 NC. NPO for lexiscan today prior to NPO pt was on Mechanical soft ADA diet. Pt takes meds crushed in applesauce. Pt has VEsta collar that is to be on at all times. Wet to dry drsg change to R) calf TID. IV to R) forearm SL. Follow up: NPO since 0000 for lexiscan today. To give pt ativan if needed. Waiting for patient to be cleard for surgery.
[2016-07-21 04:52] LABS: BASOPHIL % 0.5 %; EOSINOPHIL # 0.1 K/uL (0.0-0.5); EOSINOPHIL % 1.4 %; HEMATOCRIT 30.7 % (33.0-46.0); HEMOGLOBIN 9.3 g/dL (10.0-15.0); IMMATURE GRANULOCYTE # 0.1 K/uL (0.0-0.3); LYMPHOCYTE % 12.8 %; MCHC 30.3 gm/dL (32.0-36.5); MCV 92.5 fl (83.0-98.0); MONOCYTE # 0.5 K/uL (0.0-1.0); MONOCYTE % 6.1 %; MPV 9.5 fl (9.4-12.4); NEUTROPHIL # (ANC) 6.1 K/uL (1.8-7.8); NEUTROPHIL % 78.2 %; NRBC % 0 /100WBC (0-0.00); PLATELET COUNT 170 K/uL (150-450); RBC 3.32 M/uL (3.50-5.50); RDW-CV 16.8 % (11.9-14.6); WBC 7.8 K/uL (4.0-11.0)
[2016-07-21 04:57] LABS: INR - (THERAPEUTIC) 1.5 (0.9-1.1); PROTIME 16.1 SECONDS (9.6-11.1)
[2016-07-21 05:03] LABS: ANION GAP 13.3 (10.0-19.0); BLOOD UREA NITROGEN 14 mg/dL (6-24); CALCIUM 8.7 mg/dL (8.5-10.5); CHLORIDE 105 mMol/L (96-110); CO2 25 mMol/L (22-32); CREATININE 0.9 mg/dL (0.5-1.1); ESTIMATED GFR (MDRD EQUATION) > 60; POTASSIUM 4.3 mMol/L (3.7-5.1); SODIUM 139 mMol/L (135-145)
--- NOTE | 2016-07-21 19:15 | NUR ---
ULTRA HIGH FALL RISK Significant Event: A/O X1, follows commands at times, combative at times, 2 assist/gait belt, need lots of cueing and directions, incontinent, family @ bedside today, vista collar on at all times, lexiscan cancelled due to pt. unable to cooperate. ate 25% of diet today. O2 2l/nc, lungs clear, RLE wet to dry drsg change TID, turn q2h, L)groin rash, Follow up: NPO after MN for Lexiscan HI/LO bed, alarms for safety
--- NOTE | 2016-07-22 05:13 | NUR ---
Significant Event: Alert to self. Follows commands at times. Moves all extremities spontaneously. Takes time to direct when going to the commode. Up 2 assist due to confusion. Pt has not slept well during the night. On 2L of O2 takes off at times does not desat fast but does get down to mid 80s. NPO for Lexiscan today. Inc of urine at times. Had BM during the night. [place] collar to be on at all times. Drsg to R) fisher to be changed TID wet to dry. Heparin gtt running in IV to R) forearm at 900 next PTTHP is at 0730. Takes meds crushed in applesauce. Follow up: Lexsican today
[2016-07-22 06:54] LABS: BASOPHIL % 0.4 %; EOSINOPHIL # 0.1 K/uL (0.0-0.5); EOSINOPHIL % 1.3 %; HEMATOCRIT 31.4 % (33.0-46.0); HEMOGLOBIN 9.4 g/dL (10.0-15.0); IMMATURE GRANULOCYTE # 0.1 K/uL (0.0-0.3); IMMATURE GRANULOCYTE % 1.3 %; LYMPHOCYTE # 1.1 K/uL (0.8-4.0); LYMPHOCYTE % 11.9 %; MCH 27.6 pg (27.0-34.0); MCHC 29.9 gm/dL (32.0-36.5); MCV 92.4 fl (83.0-98.0); MONOCYTE # 0.5 K/uL (0.0-1.0); MONOCYTE % 5.4 %; MPV 9.8 fl (9.4-12.4); NEUTROPHIL # (ANC) 7.4 K/uL (1.8-7.8); NEUTROPHIL % 79.7 %; NRBC % 0 /100WBC (0-0.00); PLATELET COUNT 189 K/uL (150-450); RDW-CV 16.6 % (11.9-14.6); WBC 9.3 K/uL (4.0-11.0)
[2016-07-22 07:06] LABS: INR - (THERAPEUTIC) 1.5 (0.9-1.1); PROTIME 16.1 SECONDS (9.6-11.1)
[2016-07-22 07:10] LABS: ANION GAP 11.2 (10.0-19.0); CALCIUM 8.5 mg/dL (8.5-10.5); CREATININE 1.1 mg/dL (0.5-1.1); POTASSIUM 4.2 mMol/L (3.7-5.1)
--- NOTE | 2016-07-22 15:20 | NUR ---
Checked a couple of times and no family present. Will follow.
--- NOTE | 2016-07-22 19:42 | NUR ---
ULTRA HIGH FALL RISK Significant Event: A/O X1, 2 assist/gait belt, needs cueing to follow directions, ambulates in schwab with PT. Lexiscan today, lungs dim BLL, o2 2l/nc, [place] collar on at all times, Heparin infusion 900 units/hr. IV R)FA, next PTTHP 1999, incontinent, BM today on BSC, poor PO intake, Drsg change to RLE TID, uncooperative at times, family @ bedside, Follow up: accuchecks - plan for possible surgery later this week or Fri
[2016-07-23 04:17] LABS: BASOPHIL % 0.3 %; EOSINOPHIL # 0.1 K/uL (0.0-0.5); EOSINOPHIL % 1.2 %; HEMATOCRIT 33.4 % (33.0-46.0); HEMOGLOBIN 10.2 g/dL (10.0-15.0); IMMATURE GRANULOCYTE # 0.1 K/uL (0.0-0.3); IMMATURE GRANULOCYTE % 1.2 %; LYMPHOCYTE # 1.5 K/uL (0.8-4.0); LYMPHOCYTE % 15.7 %; MCH 27.9 pg (27.0-34.0); MCHC 30.5 gm/dL (32.0-36.5); MCV 91.3 fl (83.0-98.0); MONOCYTE # 0.6 K/uL (0.0-1.0); MONOCYTE % 6.3 %; NEUTROPHIL # (ANC) 6.9 K/uL (1.8-7.8); NEUTROPHIL % 75.3 %; NRBC % 0 /100WBC (0-0.00); PLATELET COUNT 212 K/uL (150-450); RBC 3.66 M/uL (3.50-5.50); RDW-CV 16.8 % (11.9-14.6); WBC 9.2 K/uL (4.0-11.0)
[2016-07-23 04:25] LABS: INR - (THERAPEUTIC) 1.3 (0.9-1.1); PROTIME 13.4 SECONDS (9.6-11.1)
[2016-07-23 04:29] LABS: ANION GAP 13.3 (10.0-19.0); CALCIUM 8.6 mg/dL (8.5-10.5); POTASSIUM 4.3 mMol/L (3.7-5.1)
--- NOTE | 2016-07-23 04:37 | NUR ---
Significant Event: Alert to self. Moves all extremities spontaneously and to commands at times. Up two assist with lots of directing. Currently on 1L of O2. Incontient. [place] collar on at all times. Drsg to right fisher change TID, wet to dry dressing. Heparing gtt running at 900units/hr in right forearm IV. Next PTTHP at 0800. Meds crushed in applesauce. Mechanical soft diet. Follow up: Chest xray friday.
--- NOTE | 2016-07-23 08:21 | NUR ---
A - PT SCREENED D/T LOS. A/O X 1 W/ SEVERE DEMENTIA. 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 PT W/ 1-2+ BLE EDEMA. STAGE 3 WOUND TO R) MARTINEZ. [facility] W/ INTAKE BITES TO 50%. EST NEEDS: [id number] KCALS, 78-90 GM PROTEIN, 1 ML/KCAL FLUIDS. C-SPINE SURGERY FRIDAY OR FRIDAY. D - INADEQUATE ORAL INTAKE R/T DECREASED APPETITE AEB INTAKE RECORD. I - GOAL: 50% OR BETTER INTAKE BY DISMISSAL. M/E - 1) WILL OFFER GLUCERNA BID W/ BF AND DINNER. 2) F/U IN 3-5 DAYS.
--- NOTE | 2016-07-23 16:02 | NUR ---
Significant Event:VSS, scheduled pain meds given for c/o neck pain. Pt points to L side of neck. [place] collar on at all times. CSM to upper extremities adequate, pt does not understand the concept of N/T. R lower leg ulcer wet/dry dressing changes done with Dakins solution. Ulcer bed is dark with necrotic tissue, skin on outside of ulcer area is red, brown drainage is noted on dressing. Pt tolerated well. Heparin gtt at 900 units, next PTTHP due at 1999. Ate about 25% of 2 meals with supervision. Can be irritable at times. Follow up:Monitor, dsg changes, labs
--- NOTE | 2016-07-23 16:03 | NUR ---
Called and spoke with patient's daughter Nida regarding discharge plans. She says the plan is for patient to return to [facility]. Told her the [facility] nurses said a granddaughter was needing to talk to me. Asked her if that would be Gloria who is listed on the white board. She says yes, and OK to call Gloria. She says family will be here tomorrow if patient has surgery. Called and spoke with Gloria, patient's granddaughter and she prefers patient not return to [facility]. Explained to her with her grandmother's dementia she will difficult to place, but I can call facilities if she has a preference. She wants patient to be in a facility that has a "sensory care unit". Asked her if she had choices. She says [facility] in [place]. She says they refused her before due to behaviors but she says that those behaviors are better so she thinks they might consider her now. She says she has heard good things about [facility] and knows someone who works there. Told her I can call those facilities and touchbase with the family tomorrow if they are here. She says that would be fine. Called [facility] and [facility] they have no openings on their sensory care unit. Called and spoke with Arielle at [facility] and they do not have sensory care unit. Will update family tomorrow. Will follow.
--- NOTE | 2016-07-24 02:34 | NUR ---
Significant Event:Patient alert to self, will nod yes to her name. perrla. disorganized speech, mumbles. Has dementia. Impulsive. Agitated at times. Follows most commands. Lungs clear on room air. Pacemaker. Bowel sounds active. Continent of bladder, incontinent at times. No c/o pain, but will reach for left side of neck at times. ACHS accuchecks with carb count. Takes meds crushed in applesauce. PIV to right FA- Heparin drip running at 900 units. Next PTTHP at 1999. Ulcer to Right fisher, dressing changed, to be changed BID. Tubagrip removed for the night. Coban applied, patient trying to remove dressing. Follow up: Surgery when cleared.
[2016-07-24 04:32] LABS: INR - (THERAPEUTIC) 1.4 (0.9-1.1); PROTIME 14.8 SECONDS (9.6-11.1)
--- NOTE | 2016-07-24 14:15 | NUR ---
Spoke with patient's daughters this afternoon. Updated them on conversation with granddaughter, Gloria and information from the 2 facilities she had me call. They say patient will be going back to [facility]. They say there are several reasons why she is there and they are comfortable with the care she is receiving there. They will talk to Gloria and tell her why patient will be returning to [facility]. Plan is to return to [facility] when ready for discharge. Will follow.
--- NOTE | 2016-07-24 16:10 | NUR ---
Significant Event: Patient nods yes when asked if her name is Alena. Does not answer questions or willingly follow commands. Does follow commands when she wants to. Moves extremities spontaneously. Patient very drowsy throughout shift. Did wake for family but sleeping the rest of day. [place] collar at all times. Speech is mumbled. Hypertensive, all other VSS on room air. Pacemaker present. Voids per BSC. Pressure ulcer to R) fisher, wet to dry dressing changed twice this shift. IV to R) FA infusing heparin gtt at 900 units/hr. Next PTTHP at 1999. Follow up: VS/neuros q 4 hours. Up with 2PA. ADA diet, carb count. AC/HS accucheks.
[2016-07-25 04:30] LABS: BASOPHIL % 0.4 %; EOSINOPHIL # 0.1 K/uL (0.0-0.5); EOSINOPHIL % 0.9 %; HEMATOCRIT 35.3 % (33.0-46.0); IMMATURE GRANULOCYTE # 0.1 K/uL (0.0-0.3); LYMPHOCYTE # 1.5 K/uL (0.8-4.0); LYMPHOCYTE % 15.9 %; MCH 28.4 pg (27.0-34.0); MCHC 31.2 gm/dL (32.0-36.5); MCV 91.2 fl (83.0-98.0); MONOCYTE # 0.6 K/uL (0.0-1.0); MONOCYTE % 6.8 %; MPV 9.5 fl (9.4-12.4); NEUTROPHIL # (ANC) 6.9 K/uL (1.8-7.8); NRBC % 0 /100WBC (0-0.00); PLATELET COUNT 204 K/uL (150-450); RBC 3.87 M/uL (3.50-5.50); RDW-CV 16.9 % (11.9-14.6); WBC 9.1 K/uL (4.0-11.0)
[2016-07-25 04:43] LABS: ALBUMIN 2.5 gm/dL (3.5-5.0); CREATININE 1.1 mg/dL (0.5-1.1); PHOSPHORUS 3.4 mg/dL (2.5-4.9)
--- NOTE | 2016-07-25 05:45 | NUR ---
Significant Event: Patient alert to self, will nod yes to her name. perrla. disorganized speech, mumbles. Has dementia. Impulsive. Combative at times. Follows most commands. Lungs clear on room air. Pacemaker. Ambulates 1 assist. Tow collar at all times. Bowel sounds active. Incontinent this shift. No s/s of pain, but will reach for left side of neck at times. ACHS accuchecks with carb count. Takes meds crushed in applesauce. PIV to right FA- Heparin drip running at 900 units. Next PTTHP at 1999. Ulcer to Right fisher, dressing changed, to be changed BID. Tubagrip removed for the night. Coban applied, patient trying to remove dressing. Follow up: Plan for surgery today or Friday. Has been NPO since midnight.
--- NOTE | 2016-07-25 10:13 | NUR ---
Called to talk with Judy at [facility]. Gave her verbal update and also let her know that Alena would be having surgery either today or Friday so she wouldn't be ready to come back to them until next week sometime. Judy was fine with this. She just asks that we keep her updated and when discharge gets closer, to phone her and let her know so they can set up pick up and delivery driver time and get report from our nursing staff. Let her know we would do that. No other questions, needs or concerns. CM to continue to follow and assist. Plan return back to SNF.
--- NOTE | 2016-07-25 15:47 | NUR ---
Significant Event: Patient nods when asked if her name is Alena. Otherwise patient only follows commands when she would like to. Has been awake most of day today, agitated, mumbling constantly. Patient impulsive, in hi/low bed. [place] collar at all times, does try to take off. VSS, on room air. Pacemaker present. Voids per bedside commode, incontinent at times. Brief on. Pressure ulcer to R) fisher, dressing changed x2 this shift. IV to R) FA infusing heparin gtt at 900 units/hr. Follow up: VS/neuros q 4 hours. Up with 2PA. NPO for possible surgery.
--- NOTE | 2016-07-26 02:49 | NUR ---
Significant Event: Alert to self. Mumbles words hard to understand at times. Very impulsive moves 1-2 assist. [place] collar to be on at all times. PT does pull at it and tries to take it off. On telel has a pacemaker. VSS. RA sats in low 90s. Diabetic mechanical soft diet with carb count. Pressure sore to R) fisher wet to dry drsg changes TID. IV to R) forearm running haprin at 900 units/hr. Takes meds crushed in applesauce or chocolate pudding took pt alot of convincing to take meds during the night. Follow up:
[2016-07-26 03:31] LABS: CALCIUM 9.3 mg/dL (8.5-10.5); CREATININE 1.2 mg/dL (0.5-1.1)
--- NOTE | 2016-07-26 09:51 | NUR ---
Call from Sejal at [facility] that she got a phone call from Alena's daughter stating that Dr. Fink had cleared her mom to go back to SNF today. I let Sejal know that from what I could tell, she wouldn't be ready to go back to them today, but I would double check with nursing staff and then get back to her. After talking with her primary care RN Martha, she tells me that she is still on a drip right now and the other doctors, hospitalist and cardio, have not cleared her to go yet. I phoned Sejal back, let her know that she wouldn't be coming back today, but we would check in with her on Friday. She was fine with this. I also called and updated Nida, daughter, to let her know the above as well. She was fine with this. No other questions, needs or concerns. Will continue to follow and assist.
--- NOTE | 2016-07-26 11:00 | NUR ---
A - ALERT TO SELF. VEST COLLAR. PU TO R) MARTINEZ - NECROTIC. DEMENTIA. 1+ EDEMA LABS: ACCUCHECK REAS, GLU 120, BUN/CR 23/1.2, ALB 2.5 MEDS: ALDACTONE, NAMENDA, LEXAPRO, CARB COUNT INS, SSI, SEROQUEL, ARICEPT, BOWEL/NAUSEA DIET: DIABETIC, MECH-SOFT. INTAKE: REF-50% GLUCERNA TID NEEDS: [id number] KCAL, 78-90 G PRO D - INADEQUATE NUTRIENT INTAKE R/T DECREASED APPETITE AEB INTAKE RECORD. I - GOAL FOR INTAKE > 50% BY NEXT ASSESSMENT. WILL INCREASE GLUCERNA TO TID. WILL ADD SF PUDDING @ L M/E - WILL MONITOR INTAKE F/U IN 4-5 DAYS.
--- NOTE | 2016-07-26 15:04 | NUR ---
Significant Event: Patient alert to voice and self. Mumbles at times. Clear speech at times. Follows commands at times. Moves everything spontaneously. Visual hallucinations at times. Paced rhythm. VSS. Room air with sats in the mid 90s. LS clear and diminished. Meds crushed in applesauce. Diabetic mechanical soft diet. Incontinent of urine and stool. BS active X4. No BM this shift. Accuchecks ACHS with SSI and carb count. [place] collar present. Pressure sore to right lower leg. Wet-to-dry dressings TID. Heparin running at 1000 units/hr in R) FA. Infusing with no complications. 1-2 assist with gaitbelt. Scheduled dilaudid, ativan, and tylenol given for pain. Coumadin restarted this shift. Patient cooeprative with most cares. Follow up: stop heparin tonight after first dose of lovenox; [facility] Friday tentatively
[2016-07-27 04:43] LABS: INR - (THERAPEUTIC) 1.2 (0.9-1.1); PROTIME 12.4 SECONDS (9.6-11.1)
--- NOTE | 2016-07-27 05:02 | NUR ---
Significant Event: Drowsy. Opens eyes to saying name at times. Mumbling speech with few clear words at times. Makes eye contact. VSS on room air. Repositioned as needed. Patient moves around in bed on her own. [place] collar C/D/I. One large INC void this shift. No BM. Sips of water offered but refused. Heparin gtt shut off at 1900 and Sub-Q lovenox started. Patient is on coumadin. Can D/C lovenox when INR 2.5, currently 1.7. ACHS with no SSI coverage needed. Dressing to right fisher ulcer changed as ordered. Patient became more alert with dressing change. Takes meds crushed in applesauce or strawberry ice cream. Follow up: May transfer off unit PRN, Back to [place] when INR therapeutic
--- NOTE | 2016-07-27 16:41 | NUR ---
Significant Event: Alert and oriented to self only. Room Air. SBP 110's-120's. HR. 70's and 80's. Mumbles with clear speech at times. Follows commands well. ACHS accu checks no coverage needed. Carb count, 1 unit per 15 carbs. Medications crushed in strawberry ice cream. Patient has been sleeping often through shift. Held scheduled diluadid. 2 assist with gait belt to bathroom. 2 small bowel movements this shift. Dressing to right fisher changed X 2 this shift. Ate 100% of breakfast and 50% of lunch this shift. Peripheral IV to let forearm, saline locked, flushes well with no blood return. Pleasant and cooperative with cares. Follow up:
--- NOTE | 2016-07-28 04:53 | NUR ---
Significant Event: Disoriented to time and place. Opens eyes and answers to name. Disorganized speech. VSS on room air. Dressing to to right fisher changed. IV to right forearm re-enforced. Meds crushed in strawberry icecream. Up with 1PA, impulsive. Continent and incontinent at times. Rested well. ACHS no SSI. Follow up:
[2016-07-28 05:06] LABS: INR - (THERAPEUTIC) 1.3 (0.9-1.1); PROTIME 13.4 SECONDS (9.6-11.1)
--- NOTE | 2016-07-28 18:35 | NUR ---
Significant Event: Alert and oriented to self only. Room air. SBP 126, 130 & 139. HR 69, 70, 71. Peripheral IV left forearm, flushes well. Diabetic mechanical soft diet. ACHS accu checks 139, 173 and 206. 2 units correction at dinner. Carb count with 1 unit per 15 carbs. Collar on at all times. Dressing to right lower leg changed X 2 this shift. Up with 1 assist and gait belt. Pleasant and cooperative with cares. Follow up:
--- NOTE | 2016-07-29 03:49 | NUR ---
Significant Event: Patient has dementia. Up with 1PA to bathroom. INC of urine. FOUL smelling urine. Patient restless and grabbing at right leg frequently. Implusive and getting out of bed frequently, Haldol 1MG given. Scheduled pain medications given. No SSI coverage needed for HS BG of 143. Continue with plan of care. Follow up: Watch INR
[2016-07-29 04:46] LABS: INR - (THERAPEUTIC) 1.3 (0.9-1.1); PROTIME 13.5 SECONDS (9.6-11.1)
[2016-07-29 04:59] LABS: ALBUMIN 2.5 gm/dL (3.5-5.0); ANION GAP 15.4 (10.0-19.0); CREATININE 1.4 mg/dL (0.5-1.1); PHOSPHORUS 2.6 mg/dL (2.5-4.9); POTASSIUM 4.4 mMol/L (3.7-5.1)
--- NOTE | 2016-07-29 10:50 | NUR ---
Call from Judy at [facility], wanting to know if Alena is coming back to them today. I was up on the floor by Selam Acharya, she states that she will be able to dismiss today. I asked Judy if they would have a van to come and pick her up later this morning. After checking Judy tells me they do not have a van to come and get her so we will need to set up transportation up through [facility] and bill the facility for her transport back to them. I then phoned [facility], talked with Mayda, gave her all the information on Alena. Let her know we would like to shoot for dismissal at 1200 today. Mayda states they will have a crew here at that time. I updated Selam Drew to this. I also phoned Dr. Fink and let him know we were planning on a 1200 dismissal time, asked that he come up and see her before she goes. He states he will be up shortly. Packet started, orders are on the chart and no ID Screen is needed. Orders were faxed over to SNF prior to her dismissal. I also included WOCs note as well. I gave MIRTA Grady the number for RN to RN report, asked that she call that in prior to Alena leaving. I phoned her daughter, Nida, left a VM on her cell phone with the update that we were planning on dismissal back to SNF today. Updated Alena that she would be going back to SNF today, she is in agreement with the plan. No other questions, needs or concerns. Will continue to follow and assist. Plan transfer at 1200 via [facility].
--- NOTE | 2016-07-29 15:01 | NUR ---
Significant Event: Patient alert to self only. [place] collar at all times. Pacemaker present. VSS, on room air. Incontinent at times, brief on. Pressure sore to R) fisher, dressing changed by WOC. No changes in patient condition throughout shift. IV discontinued prior to discharge. Report given to Jeremy PÉREZ. VERONICA'd at 1220 by ambulance.
== END 2016-07-29 12:30 | DRG 551 ==
LOC: EDBD 13:12 → GNTU 13:12
PROVIDERS: Family Medicine; Internal Medicine; Internal Medicine Interventional Cardiology; Nurse Practitioner Family; ADMIT Neurological Surgery
PROC: B246ZZZ Ultrasonography of Right and Left Heart (ICD-10-PCS; principal; 2016-07-19)
PROC: 4A0 Measurement and Monitoring, Physiological Systems, Measurement (ICD-10-PCS; 2016-07-20)
PROC: B44FZZZ Ultrasonography of Right Lower Extremity Arteries (ICD-10-PCS; 2016-07-20)
DX: S12.110A Anterior displaced Type II dens fracture, initial encounter for closed fracture (principal); G93.40 Encephalopathy, unspecified; I21.4 Non-ST elevation (NSTEMI) myocardial infarction; L89.894 Pressure ulcer of other site, stage 4; I11.0 Hypertensive heart disease with heart failure; F03.91 Unspecified dementia, unspecified severity, with behavioral disturbance; I50.42 Chronic combined systolic (congestive) and diastolic (congestive) heart failure; I48.0 Paroxysmal atrial fibrillation; F41.9 Anxiety disorder, unspecified; F32.9 Major depressive disorder, single episode, unspecified; E78.5 Hyperlipidemia, unspecified; E11.9 Type 2 diabetes mellitus without complications; I25.10 Atherosclerotic heart disease of native coronary artery without angina pectoris
CPT/HCPCS: A9500; J0280; J0360; J1170; J1630; J1644; J1650; J1940; J2270; J2785; Q9967